=== PATIENT | female | born 1985 | race Caucasian/White ===

== ENCOUNTER → 2016-10-15 | Day surgery (SDC) | payer OTHER ==
[~2016-10-15] MED LIST: NASAL SPRAY; NORCO 5-325 TA1 EACH PO; ZANTAC150 MG PO
[2016-10-15 08:08] LABS: HEMOGLOBIN 12.8 gm/dl (12.3-15.3); RED BLOOD COUNT 4.24 M/UL (4.00-5.10); WHITE BLOOD COUNT 5.8 K/UL (4.5-11.0)
== END | disposition home or self-care (01) ==
LOC: OR 07:33
PROVIDERS: Obstetrics & Gynecology
PROC: 10D17ZZ Extraction of Products of Conception, Retained, Via Natural or Artificial Opening (ICD-10-PCS; principal; 2016-10-15 09:30)
DX: O02.1 Missed abortion (principal); Z86.2 Personal history of diseases of the blood and blood-forming organs and certain disorders involving the immune mechanism; Z87.19 Personal history of other diseases of the digestive system
CPT/HCPCS: 81001; 85025; 86850; 86900; 86901; 88271; 88275; J1885; J2250; J2405; J2795; J7120

== ENCOUNTER → 2021-03-29 | Outpatient (CLI) | payer OTHER ==
[~2021-03-29] MED LIST changes: +AMOXICILLIN500 MG PO; +HYDROCODON-ACE1 EAC2 PO; +PROTONIX40 MG PO; +TESSALON PERLE100 MG PO; +XYZAL5 MG PO
[2021-03-29 11:27] LABS: BUN/CREATININE RATIO 16 (0-10)
== END ==
LOC: OPSV2 10:00
PROVIDERS: Orthopaedic Surgery
DX: Z01.812 Encounter for preprocedural laboratory examination (principal); L72.8 Other follicular cysts of the skin and subcutaneous tissue
CPT/HCPCS: 36415; 80048

== ENCOUNTER → 2021-04-02 | Day surgery (SDC) | payer OTHER ==
[~2021-04-02] VITALS: Ht 167.6 cm; Wt 72.6 kg
== END | disposition home or self-care (01) ==
LOC: OR 06:30
DX: D36.12 Benign neoplasm of peripheral nerves and autonomic nervous system, upper limb, including shoulder (principal); K21.9 Gastro-esophageal reflux disease without esophagitis; F41.9 Anxiety disorder, unspecified; F32.A Depression, unspecified; F17.210 Nicotine dependence, cigarettes, uncomplicated; Z79.899 Other long term (current) drug therapy
CPT/HCPCS: 84703; J1100; J1885; J2250; J2405; J2704; J3010; J7120

== ENCOUNTER 2021-04-04 17:36 | Emergency (ER) | payer OTHER ==
[~2021-04-04 17:36] MED LIST changes: -PROTONIX40 MG PO
[2021-04-04 21:05] LABS: HEMOGLOBIN 14.9 gm/dl (12.3-15.3); RED BLOOD COUNT 4.66 M/UL (4.00-5.10); WHITE BLOOD COUNT 10.3 K/UL (4.5-11.0)
[2021-04-04 21:31] LABS: BUN/CREATININE RATIO 14 (0-10)
[2021-04-04] MEDS ORDERED: PROTONIX40 MG PO (23:10)
== END 2021-04-05 | disposition home or self-care (01) ==
LOC: ER1 17:36
PROVIDERS: Physician Assistant
DX: K29.00 Acute gastritis without bleeding (principal)
CPT/HCPCS: 71045; 80053; 81001; 82550; 82553; 83690; 83735; 83874; 84484; 84703; 85025; 85379; 85610; 85730; 87086; 93005; 99284

== ENCOUNTER 2021-05-19 15:00 | Emergency (ER) | payer OTHER ==
[~2021-05-19 15:00] MED LIST changes: +PROTONIX40 MG PO
== END 2021-05-19 19:00 | disposition home or self-care (01) ==
LOC: ER1 15:00
DX: M54.50 Low back pain, unspecified (principal); F17.210 Nicotine dependence, cigarettes, uncomplicated
CPT/HCPCS: 99283

== ENCOUNTER 2021-09-09 17:42 | Emergency (ER) | payer OTHER ==
[2021-09-09 19:01] LABS: HEMOGLOBIN 14.7 gm/dl (12.3-15.3); RED BLOOD COUNT 4.75 M/UL (4.00-5.10); WHITE BLOOD COUNT 7.5 K/UL (4.5-11.0)
[2021-09-09 19:34] LABS: BUN/CREATININE RATIO 19 (0-10)
== END 2021-09-09 20:33 | disposition home or self-care (01) ==
LOC: ER1 17:42
PROVIDERS: Physician Assistant
DX: R00.2 Palpitations (principal); F17.210 Nicotine dependence, cigarettes, uncomplicated
CPT/HCPCS: 71045; 80053; 81001; 82550; 82553; 84439; 84443; 84484; 84703; 85025; 85379; 87086; 93005; 99285

== ENCOUNTER → 2021-09-10 | Outpatient (CLI) | payer OTHER | LOC: HEART 5 11:14 | DX: R00.2 Palpitations (principal) ==

== ENCOUNTER → 2021-10-02 | Outpatient (CLI) | payer OTHER | LOC: HEART 5 09:00 | DX: R00.2 Palpitations (principal) ==